=== PATIENT | female | born 1965 | race African-American/Black ===

== ENCOUNTER 2016-12-22 05:47 | Emergency (ER) | payer OTHER ==
[2016-12-22 05:55] VITALS: BP 160/92; PULSE 91; RESP 18; TEMP 98.1; O2SAT 94
--- NOTE | 2016-12-22 06:10 | EDPHY ---
H & P Stated Complaint: possible hematuria that began yesterday Time Seen by Provider: 12/22/16 05:57 HPI/ROS: Chief complaint: Hematuria HPI: 51-year-old woman presenting complaining of hematuria. Patient states that before she went to bed last night she noticed that her urine was pinkish. This morning when she got up she knows that her urine was a darker pink to red. Denies any urgency or frequency. No dysuria. No back pain or flank pain. No nausea or vomiting. She did state that she ate about 6 beets yesterday because they were on sale at [employer]. ROS: 10 point Review of Systems is negative except as noted in the HPI. Past medical history: Hypertension Physical exam: Gen: Awake, Alert, No Distress HEENT: Nose: no rhinorrhea Eyes: PERRLA, EOMI Mouth: Moist mucosa Neck: Supple, no JVD Chest: nontender, lungs clear to auscultation Heart: S1, S2 normal, no murmur Abd: Soft, non-tender, no guarding Back: no CVA tenderness, no midline tenderness Ext: no edema, non-tender Skin: no rash Neuro: CN II-XII intact, Sensation grossly intact, Strength 5/5 in bilateral upper and lower extremities - Personal History LMP (Females 10-55): Post Menopausal Current Tetanus/Diphtheria Vaccine: Unsure Current Tetanus Diphtheria and Acellular Pertussis (TDAP): Unsure Tetanus Vaccine Date: <10 years - Medical/Surgical History Hx Asthma: No Hx Chronic Respiratory Disease: No Hx Diabetes: No Hx Cardiac Disease: No Hx Renal Disease: No Hx Cirrhosis: No Hx Alcoholism: No Hx HIV/AIDS: No Hx Splenectomy or Spleen Trauma: No Other PMH: HTN - Social History Smoking Status: Former smoker Constitutional: Initial Vital Signs Temperature (C) 36.7 C 12/22/16 05:50 Heart Rate 91 12/22/16 05:50 Respiratory Rate 18 12/22/16 05:50 Blood Pressure 160/92 H 12/22/16 05:50 O2 Sat (%) 94 12/22/16 05:50 O2 Delivery Mode Room Air Allergies/Adverse Reactions: No Known Allergies Allergy (Unverified 12/22/16 05:55) Home Medications: Medication Instructions Recorded Chlorthalidone 12/22/16 Estradiol 12/22/16 Ranitidine HCl 12/22/16 Medical Decision Making ED Course/Re-evaluation: Patient is here with pink urine secondary to eating a large number of beats yesterday. I have warned her that her stool likely be read as well. She does not have any symptoms suggestive of urinary tract infection. Urine dip here is negative for blood. She will be discharged with instructions to follow up as needed. - Data Points Laboratory Results: 12/22/16 06:00 Urine Color Pending Urine Appearance Pending Urine pH Pending Ur Specific [place] Pending Urine Protein Pending Urine Ketones Pending Urine Blood Pending Urine Nitrate Pending Urine Bilirubin Pending Urine Urobilinogen Pending Ur Leukocyte Esterase Pending Urine RBC Pending Urine WBC Pending Ur Epithelial Cells Pending Urine Glucose Pending Departure - Departure Clinical Impression: Red urine due to beet ingestion Condition: Good Instructions: Regular Diet (ED) Additional Instructions: Be aware that beets will turn your urine a your stool pink to red. Referrals: NONE *PRIMARY CARE P,. [Primary Care Provider] - As per Instructions
[2016-12-22 06:18] LABS: COLOR RED; LEUKOCYTE ESTERASE,URINE NEGATIVE (NEGATIVE); NITRITE,URINE NEGATIVE (NEGATIVE)
[2016-12-22 06:27] LABS: MUCUS TRACE /lpf (NONE-1+)
== END 2016-12-22 06:36 | disposition home or self-care (01) ==
DX: R82.99 Other abnormal findings in urine (principal); I10 Essential (primary) hypertension; Z87.891 Personal history of nicotine dependence